=== PATIENT | female | born 1980 | race Caucasian/White ===

== ENCOUNTER 2022-01-18 09:49 | Emergency (ER) | payer SELFPAY ==
[~2022-01-18] VITALS: Ht 160 cm; Wt 81.8 kg
[~2022-01-18 09:49] MED LIST: CEPHALEXIN500 MG OR; CIPRO500 MG OR; CORTISPORIN OTI10 M1 OT; CORTISPORIN OTI10 ML AD; FLOXIN OTIC OT; IBUPROFEN400 MG OR; NAPROSYN500 MG OR; NO HOME MEDS; PERCOCET 5/325M1 TAB OR
[2022-01-18 09:55] VITALS: BP 121/68
[2022-01-18 10:00] VITALS: BP 116/73
[2022-01-18 12:00] VITALS: BP 105/67; BP 114/48
[2022-01-18 12:30] VITALS: BP 105/67; BP 109/76
== END 2022-01-18 10:59 | disposition home or self-care (01) | DRG 605 ==
LOC: ED 09:49
PROC: 0HQGXZZ Repair Left Hand Skin, External Approach (ICD-10-PCS; principal; 2022-01-18)
PROC: 0HQEXZZ Repair Left Lower Arm Skin, External Approach (ICD-10-PCS; 2022-01-18)
DX: S61.412A Laceration without foreign body of left hand, initial encounter (principal); S61.512A Laceration without foreign body of left wrist, initial encounter; W26.8XXA Contact with other sharp object(s), not elsewhere classified, initial encounter; Y93.E9 Activity, other interior property and clothing maintenance; Y92.009 Unspecified place in unspecified non-institutional (private) residence as the place of occurrence of the external cause; F17.200 Nicotine dependence, unspecified, uncomplicated; X58.XXXA Exposure to other specified factors, initial encounter

== ENCOUNTER 2022-01-18 11:53 | Emergency (ER) | payer SELFPAY ==
[~2022-01-18] VITALS: Ht 160 cm; Wt 84.9 kg
[2022-01-18 12:35] VITALS: BP 105/67
== END 2022-01-18 12:39 | disposition home or self-care (01) | DRG 605 ==
LOC: ED 11:53
DX: S61.512A Laceration without foreign body of left wrist, initial encounter (principal); F17.200 Nicotine dependence, unspecified, uncomplicated; X58.XXXA Exposure to other specified factors, initial encounter

== ENCOUNTER 2022-01-25 09:26 | Emergency (ER) | payer SELFPAY ==
[~2022-01-25] VITALS: Ht 160 cm; Wt 79.0 kg
[2022-01-25 09:40] VITALS: BP 120/68
[2022-01-25 10:00] VITALS: BP 107/67
[2022-01-25 10:31] VITALS: BP 93/53
[2022-01-25 10:34] VITALS: BP 70/47
[2022-01-25 10:35] VITALS: BP 106/75
== END 2022-01-25 10:35 | disposition home or self-care (01) | DRG 951 ==
LOC: ED 09:26
DX: Z48.02 Encounter for removal of sutures (principal)